=== PATIENT | male | born 1970 | race Caucasian/White ===

== ENCOUNTER → 2021-12-07 | Outpatient (CLI) | payer BC | LOC: M WUC 09:52 | PROVIDERS: ATTEND Physician Assistant Medical | DX: M54.6 Pain in thoracic spine (principal) ==

== ENCOUNTER → 2024-01-14 | Outpatient (REF) | payer BC | LOC: M LAB REF 01-12 09:46 | PROVIDERS: ATTEND Student in an Organized Health Care Education/Training Program | DX: R19.7 Diarrhea, unspecified (principal) ==